=== PATIENT | female | born 1955 | race Caucasian/White ===

== ENCOUNTER 2019-05-18 11:33 | Observation (INO) ==
[2019-05-18] MEDS ORDERED: NORCO-7.5 PO ONE (11:58)
[2019-05-18 12:19] LABS: BASO# 0.03 X1000 (0.0-0.2); BASO% 0.5 % (0.0-0.8); EOS# 0.09 X1000 (0.0-0.7); EOS% 1.4 % (0.0-10.0); HEMATOCRIT 43.1 % (37.0-47.0); HEMOGLOBIN 13.9 g/dL (12.0-16.0); IMM GRAN# 0.01 X1000 (0.0-0.04); IMM GRAN% 0.2 % (0.0-0.5); LYMPH# 1.89 X1000 (1.2-3.4); LYMPH% 28.7 % (20.5-51.1); MCH 33.7 PG (27-31); MCHC 32.3 g/dL (33-37); MCV 104.6 FL (81-99); MONO# 0.48 X1000 (0.11-0.59); MONO% 7.3 % (1.7-9.3); MPV 8.9 FL (7.4-10.4); NEUT# 4.08 X1000 (1.4-6.5); NEUT% 61.9 % (42.2-75.2); PLT 335 X1000 (130-400); RBC 4.12 XMIL (4.2-5.4); WBC 6.58 X1000 (4.8-10.8)
[2019-05-18 12:45] LABS: AGAP 16; ALKALINE PHOSPHATASE 71 U/L (32-104); BUN 22 mg/dL (8-22); CALCIUM 9.1 mg/dL (8.8-10.2); CHLORIDE 104 mmol/L (98-107); COSMO 286; CREATININE 0.8 mg/dL (0.5-0.9); ESTIMATED GFR > 60; GLUCOSE 99 mg/dL (70-104); GOT 17 U/L (10-30); GPT 7 U/L (10-36); POTASSIUM 4.6 mmol/L (3.5-5.1); SODIUM 142 mmol/L (136-145); TCO2 22 mmol/L (25-35); TOTAL BILIRUBIN < 0.15 mg/dL (0.20-1.00); TOTAL PROTEIN 7.5 g/dL (6.3-8.3)
[2019-05-18] MEDS ORDERED: NS 1,000 ML IV ONE ×2 (13:22→13:24)
--- NOTE | 2019-05-18 13:29 | PROVIDER DOCUMENTATION ---
This chart was entered by Kaitlin Smith Scribe, acting as scribe for Enzo Patiño MD. 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 Pt reports she got up from a chair and felt a 'pop' and then the 'mass' came up. Pt does report she fell the Tuesday after [place] but received no medical treatment and has been fine until today. Pt denies CP/SOB. Location of Pain/Injury: reports: back Quality of Pain: reports: pressure Severity: reports: severe Onset/Duration: reports: abrupt, just prior to arrival Timing: reports: still present Context/Activities at Onset: reports: light activity Associated Symptoms: reports: denies symptoms Similar Symptoms Previously?: No Recently seen or treated by another doctor?: No Review of Systems - Adult - REVIEW OF SYSTEMS - ADULT Constitutional: reports: see HPI. denies: chills, fever, fatique Eyes: reports: no symptoms reported Ears, Nose, Mouth & Throat: reports: no symptoms reported Cardiovascular: reports: see HPI. denies: chest pain, palpitations Respiratory: reports: no symptoms reported Gastrointestinal: reports: no symptoms reported Genitourinary: reports: no symptoms reported Musculoskeletal: reports: see HPI, other (large mass on left side back) Integumentary: reports: no symptoms reported Neurological: reports: no symptoms reported Psychiatric: reports: no symptoms reported Endocrine: reports: no symptoms reported Hematologic/Lymphatic: reports: no symptoms reported Allergic/Immunologic: reports: no symptoms reported All Other Systems: Reviewed and Negative Past History - Adult - PAST MEDICAL HISTORY-ADULT Review of Records: reports: Nursing Assessment Review, Medications Reviewed, Social history reviewed & non-contributory. Major Childhood Illnesses: reports: denies history Cardiovascular: reports: denies history Respiratory: reports: denies history Gastrointestinal: reports: denies history Obstetrical/Gynecological: reports: denies history Genitourinary: reports: denies history Musculoskeletal: reports: denies history Neurological: reports: denies history Endocrine/Immune: reports: denies history Other Conditions: reports: denies history - IMMUNIZATION STATUS Childhood Immunizations: See Nurse Assessment Flu Vaccine: See Nurse Assessment - FAMILY HISTORY Family History: reviewed, not pertinent - SOCIAL HISTORY Smoking: denies Physical Exam-General - PHYSICAL EXAM-ADULT Initial Vital Signs Reviewed: Yes - CONSTITUTIONAL General Appearance: appears well, alert. negative: anxious, combative - EYES Eyes: PERRL/EOMI, pink conjunctivae. negative: photophobia - HEAD, EARS, NOSE, MOUTH & THROAT HENMT: normocephalic/atraumatic, moist mucous membranes, normal ENT inspection. negative: angioedema - NECK Neck: non-tender, full range of motion, supple, normal inspection. negative: C- spine tenderness - RESPIRATORY Respiratory: chest non-tender, lungs clear, normal breath sounds, no pleuratic chest pain, no respiratory distress, no accessory muscle use. negative: crackles, rales, rhonchi, stridor, wheezing - CARDIOVASCULAR Cardiovascular: normal peripheral pulses, regular rate, rhythm, no edema, no gallop, no JVD, no murmur. negative: bradycardia, tachycardia - GASTROINTESTINAL (ABDOMEN) Abdominal Exam: normal bowel sounds, non tender, soft, no organomegaly, no pulsatile mass. negative: distended, guarding, rigid, rebound - MUSCULOSKELETAL Back Exam: swelling, other (large 'mass' on left mid thoracic area) Extremity: normal range of motion, non-tender, normal gait, normal inspection, no pedal edema, no calf tenderness, normal capillary refill. negative: deformity - SKIN Integumentary: normal color, normal turgor, warm/dry. negative: diaphoresis, la ceration(s), rash - PSYCHIATRIC Psych/Mental Status: normal mood/affect, oriented x 3. negative: anxious, disheveled Progress - PLAN OF CARE/RESULTS Progress/Plan/Lab Results: Vital Signs - 8 hr 05/18/19 11:47 Temperature 98.7 F Pulse Rate 110 H Respiratory Rate 26 H Blood Pressure 115/93 O2 Sat by Pulse Oximetry 95 Orders Category Date Time Status CBC WITH DIFF [HEME] Stat Lab 05/18/19 11:53 Ordered COMPREHENSIVE METABOLIC PANEL [CHEM] Stat Lab 05/18/19 11:53 Ordered Hydrocodone/APAP 7.5 mg/325 mg [[facility]-7.5] Med 05/18/19 11:58 Once 1 each PO NOW ONE Result Diagrams: 05/18/19 12:01 05/18/19 12:01 - CONSULTS/PCP/HOSPITALIST Notification #1 *Consult/PCP/Hospitalist*: Dr. Rendon Time Discussed: 13:23 Consult Disposition: Admit (transfer pt to [facility]) Departure - Departure Date of Disposition Decision: 05/18/19 Time of Disposition Decision: 13:23 DIAGNOSIS: Hematoma Fracture, ribs Qualifiers: Encounter type: initial encounter Disposition: ADMITTED INPATIENT 09 Certified Medical Emergency: Emergent Condition: Stable Additional Instructions: ED Follow Up Instructions: You have been treated by a care provider in the Emergency Department. These instructions are being provided to you so you can have an understanding of how to care for yourself upon discharge. Upon discharge from the Emergency Department, you are responsible for making arrangements for follow-up care by a physician of your choice. Take all prescribed medications as directed. Return to the Emergency Department immediately for any new or worsening symptoms. You may call the Physician Referral phone number at [phone] to obtain a list of Physicians who are taking new patients. Referrals and Follow-Ups: Enzo Patiño MD [Primary Care Provider] - - Critical Care Note This patient required my direct & personal management of CC.: No Attestation - Physician/ SAUL Attestation Patient care was provided by Advanced Practice Provider:: No The physician spent face to face time with patient:: Yes Advanced Practice Provider documentation review:: Supervising physician onsite and consulted in the evaluation and care of this patient. The physician did have a face to face encounter with the patient. This chart was documented by the indicated scribe, (Kaitlin Smith Scribe) and accurately reflects the services I performed and decisions made by me, Enzo Patiño MD, as attested by the provider's signature.
--- NOTE | 2019-05-18 13:34 | Diag Imaging Result Doc PS360 ---
EXAM: CT THORAX/ABDOMEN W/CONTRAST - 05/18/2019 HISTORY: low back hernia TECHNIQUE: CT thorax/abdomen with intravenous contrast COMPARISON: None. FINDINGS: CT thorax: There is a displaced fracture of the posterior left 11th rib. There is a fracture of posterior left 12th rib without substantial displacement. There is substantial subcutaneous soft tissue swelling at the posterior lower chest/mid back on the left. There is contrast extravasation centrally in the swollen area. This suggests subcutaneous vascular injury, likely representing arterial bleed. There is a calcified granuloma from old granulomatous disease at the posterior medial right lower lobe. The remainder the lungs appear essentially clear. There is no pleural effusion or pneumothorax identified. There is no mediastinal hematoma or pericardial fluid identified. There are no abnormally enlarged mediastinal or hilar lymph nodes identified. CT ABDOMEN: There are no substantial abnormalities of the liver, spleen (other than calcified granulomas from old granulomatous disease), adrenal glands, or pancreas identified. There are no calcified gallstones or pericholecystic inflammation seen. The bilateral kidneys enhance homogeneously. There is no hydronephrosis. There is no evidence of bowel obstruction. There is no free air, free fluid, or abscess identified. IMPRESSION: CT thorax: Fractures of posterior left 11th and 12th ribs. Large subcutaneous hematoma at the posterior lower chest/mid back on the left. Contrast extravasation centrally within the hematoma which suggests subcutaneous vascular (likely arterial) injury. No pleural effusion. No pneumothorax. CT ABDOMEN: No visible acute abnormality within the abdomen. No evidence of intra-abdominal injury. This report was discussed with Dr. Patiño on 05/18/2019 at 1:14 PM and was readback. This exam was performed using automated exposure control, adjustment of mA or kV according to patient size, and/or use of iterative reconstruction technique. Electronically signed by Karson Yee 05/18/2019 1:32 PM
[2019-05-18 13:38] LABS: INR 0.91; PROTIME 12.7 Seconds (11.0-16.0)
[2019-05-18 13:39] LABS: PTT 30.8 Seconds (22.3-41.8)
[2019-05-18] MEDS: NORCO-7.5 PO PRN (18:30)
--- NOTE | 2019-05-19 05:11 | HISTORY AND PHYSICAL ---
DATE: 05/18/2019 CHIEF COMPLAINT: Left posterior chest swelling and pain. REASON FOR ADMISSION: Subcutaneous hematoma. HISTORY OF PRESENT ILLNESS: A 63-year-old female who has a smoking history, she has high blood pressure and she takes 8 to 9 BC powders for chronic pain and headaches at home daily. She had a fall over Thanksgiving. She had a significant bruise to her chest, but failed to seek medical attention and unclear of the circumstances here. She has a mother in ICU and attempted to move her yesterday and developed some pain at the site of her previous chest wall injury yesterday, but upon sitting and twisting out of her chair today, she developed acute onset swelling. Came to the ER, where CT scan was obtained that showed a left posterior chest wall hematoma in subcutaneous space. I was consulted. She has no shortness of breath, although she does have some localized discomfort. MEDICAL HISTORY: Hypertension, tobacco use. SURGICAL HISTORY: She has had no thoracic or vascular surgery. SOCIAL HISTORY: She does smoke. Drinks occasionally. FAMILY HISTORY: Reviewed and negative for cancer. REVIEW OF SYSTEMS: Ten-point review of systems was performed, negative than otherwise mentioned HPI. MEDICATION HISTORY: Being compiled, but she does take 8 to 9 BC powders daily, she says, for chronic pain on a regular basis. DIAGNOSTIC AND LABS: She has had a CT scan of the chest, abdomen that shows a left posterior chest wall subcutaneous hematoma with no pleural effusion, no pneumothorax, and 11th and 12th rib fractures. There does also appear to be a blush within the hematoma. I reviewed her labs, white count is 6, hematocrit 43, platelets are 335. INR 0.91. Creatinine 0.8. Troponins are negative. PHYSICAL EXAM: Vital signs: She is afebrile. Pulse 79, blood pressure 117/72, oxygen saturation 95%. General: She is alert, in no acute distress. HEENT: No scleral icterus. No cervical mass. Cardiovascular: Normal rate. Pulmonary: No increased work of breathing. Abdomen: Soft, nontender, nondistended. Musculoskeletal: Her left posterior chest wall just below her scapula there is some swelling with some early ecchymosis, but no overlying skin changes. Psychiatric: Appropriate mood and affect. Neurologic: No gross deficits. Peripheral vascular: No upper and lower extremity edema. Lymphatic: No cervical adenopathy. ASSESSMENT AND PLAN: A 63-year-old female with left posterior chest hematoma. It is in the setting of chronic rib fractures and overuse of aspirin via BC powders. I have monitored it, it does not seem to be rapidly expanding. Hematocrit is 43. We will follow hematocrit's closely overnight and suspect that this will resolve with observation. She may ultimately require hematoma evacuation. We discussed this. Will allow her to have clear liquids but NPO at midnight and plans going forward. She is on IV fluids. We will follow her along. cc: Steffany Rendon MD
[2019-05-19 07:44] LABS: BASO# 0.02 X1000 (0.0-0.2); BASO% 0.3 % (0.0-0.8); EOS# 0.12 X1000 (0.0-0.7); HEMATOCRIT 35.8 % (37.0-47.0); HEMOGLOBIN 11.4 g/dL (12.0-16.0); LYMPH% 37.3 % (20.5-51.1); MCH 33.8 PG (27-31); MCHC 31.8 g/dL (33-37); MCV 106.2 FL (81-99); MONO# 0.49 X1000 (0.11-0.59); MONO% 8.3 % (1.7-9.3); MPV 9.1 FL (7.4-10.4); NEUT# 3.07 X1000 (1.4-6.5); NEUT% 52.1 % (42.2-75.2); PLT 245 X1000 (130-400); RBC 3.37 XMIL (4.2-5.4); RDW 12.9 % (11.5-14.5)
[2019-05-19] MEDS: NORCO-7.5 PO PRN ×3 (10:04→22:28)
--- NOTE | 2019-05-19 16:05 | GENERAL SURGERY PROGRESS NOTE ---
DATE: 05/19/2019 SUBJECTIVE: Her back feels some better today. No fevers. No tachycardia. OBJECTIVE: Vital Signs: Blood pressure 115/61. Oxygen saturation 91% on room air. General: She is alert. Chest: Left chest hematoma is stable. Skin: Integrity is good. LABORATORY DATA: White count is count 5, hematocrit is down to 35. ASSESSMENT/PLAN: A 63-year-old female with left chest hematoma related to rib fractures and anticoagulation for overuse of aspirin. Will advance her diet today. We will observe her hematocrit today and her hematoma and plan for possibly home tomorrow. Discussed importance of minimal BC powders as an outpatient. We will continue pain control and observation of her hematocrit and hematoma. She may require outpatient drainage of the hematoma in the future if it persists, but from a hemostatic standpoint it seems to be doing okay. cc: Steffany Rendon MD
[2019-05-20] MEDS: NORCO-7.5 PO PRN ×2 (09:35→15:48)
[2019-05-20 13:03] VITALS: BP 163/80
--- NOTE | 2019-05-20 15:08 | DISCHARGE SUMMARY ---
ADMISSION DATE: 05/19/2019 DISCHARGE DATE: 05/20/2019 SUBJECTIVE: Hemodynamically stable overnight. Less pain. No fevers. OBJECTIVE: Pulse 88, blood pressure 152/69, oxygen saturation 91%. General: She is alert. Left chest swelling is less today. Hematocrit is stable at 36. ASSESSMENT/PLAN: A 63-year-old female with subcutaneous hematoma related to her rib fracture several weeks ago and anticoagulation via a large amount of aspirin. I think it is safe for her to go home. I will see her in a week. We did discuss the possibility of elective drainage of the hematoma as an outpatient if it requires. Otherwise, we discussed signs and symptoms of worsening. ADMITTING DIAGNOSIS: Left chest hematoma. DISCHARGE DIAGNOSIS: Left chest hematoma. HOSPITAL COURSE: She was admitted for observation after hematoma was found. Remained stable. Hematocrit was stable. She was felt safe for discharge. Diet as tolerated. Activity, I have encouraged a chest binder at home and given instructions on when to call with signs or symptoms of worsening. cc: Steffany Rendon MD
== END 2019-05-20 16:57 | disposition home or self-care (01) ==
LOC: P.ED 11:33 → 4N 13:58 → INTOOBSV 13:58
PROVIDERS: ADMIT Surgery; ATTEND Surgery